=== PATIENT | female | born 1975 | race African-American/Black ===

== ENCOUNTER 2016-11-23 15:11 | Emergency (ER) | payer OTHER ==
[~2016-11-23] VITALS: Ht 152.4 cm; Wt 95.2 kg
[~2016-11-23 15:11] MED LIST: ALBUTEROL MININEB NEB; ALBUTEROL17 GM INH; AMITIZA24 MCG PO; AMOXICILLIN PO; ANUCORT-HC25 MG/SUPP PR; ATIVAN PO; BACTRIM DS TABL1 TA1 PO; BLADDER MEDICATION; CELEXA PO; CELEXA20 MG PO; COLACE PO; COMPAZINE10 MG PO; CORTIZONE-10 AN28 GM TOP; DEPAKOTE PO; DICLOFENAC; DICYCLOMINE HCL20 MG PO; DIFLUCAN PO; DILANTIN PO; DITROPAN5 MG PO; ELIMITE60 GM; ELIMITE60 GM TOP; ELMIRON100 MG PO; FLAGYL; FLEXERIL10 MG PO; FLONASE16 GM; GABAPENTIN300 M2 PO; GAVILYTE-G SO4000 ML; IBUPROFEN PO; IBUPROFEN800 MG PO; KENALOG IN ORABA5 GM; KEPPRA1000 MG PO; KEPPRA500 M1 PO; KEPPRA500 M2 PO; KEPPRA500 MG DOB; KEPPRA500 MG PO; KEPPRA750 MG PO; KETOPROFEN PO; LAMICTAL PO; LAMICTAL100 MG PO; LAMOTRIGINE100 MG PO; LAMOTRIGINE25 M1 PO; LIDOCAINE HCL 3%; LISINOPRIL PO; LISINOPRIL20 MG PO; LORTAB 5/500 TA1 TA1 PO; METRONIDAZOLE PO; MIRALAX17 GM PO; MIRALAX255 GM PO; MOTRIN600 M1 PO; MUCINEX DM1 TAB.SR . PO; NAPROXEN PO; NEURONTIN PO; OMEPRAZOLE20 M2 PO; PATIENT'S PHARMACY; PEPCID AC20 M2 PO; PHENERGAN PO; PRILOSEC PO; PRINIVIL10 MG PO; PROZAC; PROZAC PO; ROBITUSSIN AC; SEIZURE MEDICATION; SEROQUEL; SEROQUEL PO; SIMVASTATIN20 MG PO; SKELAXIN PO; SLEEPING PILL PO; SYMBICORT 16010.2 GM IH; TRAZODONE PO; TYLOX 5/500 CAP1 CAP PO; ULTRAM; ULTRAM PO; VENTOLIN5 MG/ML IH; VICODIN 5/500 T1 TAB PO; VOLTAREN50 MG PO; ZANTAC; ZANTAC PO; ZEGERID40 MG/PKT PO; ZITHROMAX PO; ZOCOR PO; ZOCOR20 MG PO; ZONISAMIDE; [UNRECOGNIZED DRUG - OTHER] PO
[2016-11-23 16:48] LABS: BASOPHIL# 0.1 X10e3 (0-0.3); BASOPHIL% 0.9 % (0-2.5); EOSINOPHIL% 0.5 % (0.0-7.0); HEMATOCRIT 42.5 % (35.0-45.0); HEMOGLOBIN 14.2 gm/dL (12.0-16.0); LYMPHOCYTE# 1.7 X10e3 (1.0-3.5); LYMPHOCYTE% 27.1 % (17.0-45.0); MEAN CELL VOLUME 96.6 FL (83-96); MEAN CORPUSCULAR HEMOGLOBIN 32.3 PG (28-34); MEAN CORPUSCULAR HGB CONC 33.5 g/dL (30-36); MEAN PLATELET VOLUME 7.1 FL (6.5-11.5); MONOCYTE# 0.4 X10e3 (0-1.0); MONOCYTE% 6.8 % (3.0-12.0); NEUTROPHIL# 4.1 X10e3 (1.5-7.1); NEUTROPHIL% 64.7 % (40-75); PLATELET COUNT 242 X10e3 (140-420); RED BLOOD COUNT 4.39 X10e (3.90-5.30); RED CELL DISTRIBUTION WIDTH 14.2 % (11.0-15.5); WHITE BLOOD COUNT 6.3 X10e3 (4.0-10.5)
[2016-11-23 16:49] LABS: DIFF IND NO
[2016-11-23 17:11] LABS: CALCIUM SERUM 9.2 mg/dL (8.4-10.2); CREATININE SERUM 0.9 mg/dL (0.6-1.4); GLOM FILT RATE Estimated 92.1 mL/min (>60); POTASSIUM 3.8 mmol/L (3.5-5.1)
== END 2016-11-23 18:01 | disposition home or self-care (01) ==
LOC: CED 15:11
PROVIDERS: Emergency Medicine
DX: G40.409 Other generalized epilepsy and epileptic syndromes, not intractable, without status epilepticus (principal); E11.9 Type 2 diabetes mellitus without complications; F17.210 Nicotine dependence, cigarettes, uncomplicated; Z79.899 Other long term (current) drug therapy
CPT/HCPCS: 36415; 80048; 82947; 85025; 96374; 99284; J1953